=== PATIENT | male | born 1985 | race Two or more races ===

== ENCOUNTER 2016-12-03 18:36 | Emergency (ER) | payer MEDICAID ==
[~2016-12-03] VITALS: Ht 180.3 cm; Wt 93.2 kg
[2016-12-03 18:59] VITALS: BP 127/90
== END 2016-12-03 21:52 | disposition left against medical advice (07) ==
LOC: ER 18:42
DX: R73.9 Hyperglycemia, unspecified (principal); Z53.21 Procedure and treatment not carried out due to patient leaving prior to being seen by health care provider
CPT/HCPCS: 82962